=== PATIENT | male | born 1990 | race Caucasian/White ===

== ENCOUNTER 2020-02-05 08:26 | Emergency (ER) | payer OTHER ==
[2020-02-05 08:37] VITALS: BP 127/76; PULSE 95; RESP 18; TEMP 98.1
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
== END 2020-02-05 09:32 | disposition home or self-care (01) ==
LOC: EC 08:26
DX: Z04.1 Encounter for examination and observation following transport accident (principal); F17.200 Nicotine dependence, unspecified, uncomplicated; Z91.030 Bee allergy status; Y99.0 Civilian activity done for income or pay
CPT/HCPCS: 99283